=== PATIENT | male | born 1970 | race Caucasian/White ===

== ENCOUNTER 2020-11-10 02:43 | Emergency (ER) | payer OTHER ==
[~2020-11-10] VITALS: Ht 167.6 cm; Wt 149.0 kg
[~2020-11-10 02:43] MED LIST: LISI-167 PO
[2020-11-10] MEDS ORDERED: OXYMETAZOLINE NASAL SPRAY 0.05%,30ML ONE (03:05)
[2020-11-10] MEDS ORDERED: BACITRACIN ZINC OINT 500U/GM, 0.9 GM ONE (03:10)
[2020-11-10 03:28] VITALS: BP 151/100
== END 2020-11-10 03:46 | disposition home or self-care (01) ==
LOC: ED 03:39
DX: R04.0 Epistaxis (principal); I10 Essential (primary) hypertension
CPT/HCPCS: 30901; 99284